=== PATIENT | male | born 1960 | race Caucasian/White ===

== ENCOUNTER 2022-10-01 07:44 | Day surgery (SDC) | payer OTHER ==
[2022-09-28 16:00] VITALS: BMI 29.2
[2022-10-01 09:38] VITALS: RESP 17; TEMP 98.2
[2022-10-01 16:45] VITALS: BP 101/70; PULSE 62
== END 2022-10-01 09:20 | disposition home or self-care (01) ==
LOC: FASU-ENDO 07:44
PROVIDERS: ATTEND Internal Medicine Gastroenterology
PROC: 0DBC8ZX Excision of Ileocecal Valve, Via Natural or Artificial Opening Endoscopic, Diagnostic (ICD-10-PCS; 2022-10-01)
PROC: 0DBK8ZX Excision of Ascending Colon, Via Natural or Artificial Opening Endoscopic, Diagnostic (ICD-10-PCS; principal; 2022-10-01 08:41)
DX: Z12.11 Encounter for screening for malignant neoplasm of colon (principal); K57.30 Diverticulosis of large intestine without perforation or abscess without bleeding; K63.5 Polyp of colon
CPT/HCPCS: 88305-TC